=== PATIENT | female | born 1980 | race African-American/Black ===

== ENCOUNTER 2024-07-05 07:07 | Day surgery (SDC) | payer OTHER ==
[~2024-07-05] VITALS: Ht 172.7 cm; Wt 79.4 kg
[2024-07-05] MEDS ORDERED: SODIUM CHLORIDE 0.9% 10 ML SYR ONE (07:41)
[2024-07-05] MEDS ORDERED: LIDOCAINE HCL 1% (10MG/ML) 100 MG/10 ML MDV ONE (07:55)
[2024-07-05] MEDS ORDERED: DEXAMETHASONE SODIUM PHOSPHATE PF 10 MG/ML SDV ONE (07:55)
[2024-07-05] MEDS ORDERED: Iopamidol 61% 5 ML SYR IV ONE (07:56)
[2024-07-05] MEDS ORDERED: SODIUM CHLORIDE 20 ML/VIAL SDV ONE (07:56)
[2024-07-05] MEDS ORDERED: MIDAZOLAM HCL 2 MG/2 ML VIAL ONE (07:56)
[2024-07-05 08:47] VITALS: BP 131/80
== END 2024-07-05 08:36 | disposition home or self-care (01) ==
LOC: ORM 07:07
PROVIDERS: ATTEND Student in an Organized Health Care Education/Training Program
DX: M54.16 Radiculopathy, lumbar region (principal); M51.36 Other intervertebral disc degeneration, lumbar region; M51.26 Other intervertebral disc displacement, lumbar region; G89.4 Chronic pain syndrome
CPT/HCPCS: J1100; Q9967